=== PATIENT | female | born 1965 | race Caucasian/White ===

== ENCOUNTER 2017-03-17 12:38 | Emergency (ER) | payer OTHER ==
[~2017-03-17] VITALS: Ht 157.5 cm; Wt 87.0 kg
[~2017-03-17 12:38] MED LIST: FLEXERIL PO; LEVOTHYROXIN100 MCG PO; LISINOP/HCTZ1 TAB PO; NAPROSYN500 MG PO; NAPROXEN250 MG PO
[2017-03-17] MEDS ORDERED: PERCOCET 5/325M1 TAB PO (13:20)
[2017-03-17] MEDS ORDERED: EC-NAPROSYN500 MG PO (13:20)
[2017-03-17 14:00] VITALS: BP 148/75
== END 2017-03-17 14:00 | disposition home or self-care (01) | DRG 563 ==
LOC: ED 12:38
PROC: 2W3AX1Z Immobilization of Right Upper Arm using Splint (ICD-10-PCS; principal; 2017-03-17)
DX: S42.341A Displaced spiral fracture of shaft of humerus, right arm, initial encounter for closed fracture (principal); W01.190A Fall on same level from slipping, tripping and stumbling with subsequent striking against furniture, initial encounter; Y93.9 Activity, unspecified; Y92.003 Bedroom of unspecified non-institutional (private) residence as the place of occurrence of the external cause

== ENCOUNTER 2017-05-21 09:00 | Inpatient (IN) | payer OTHER ==
[2017-05-21] VITALS (7 sets, daily range): BP systolic 93–105; BP diastolic 39–55
[~2017-05-21] VITALS: Ht 157.5 cm; Wt 87.1 kg
[~2017-05-21 09:00] MED LIST changes: +ADULT ASPIRIN E81 MG PO; +EC-NAPROSYN500 MG PO; +PERCOCET 5/325M1 TAB PO
[2017-05-21 14:28] LABS: HEMATOCRIT 34.9 % (37.0-47.0); HEMOGLOBIN 11.7 g/dl (12.0-16.0); IMMATURE GRANULOCYTES 0.4 % (0.0-1.0); MEAN CELL VOLUME 87.9 fL CALC (80.0-100.0); MEAN CORPUSCULAR HGB 29.5 pG CALC (26.0-32.0); MEAN CORPUSCULAR HGB CONC 33.5 g/L CALC (32.0-36.0); NEUT# 7.29 thou/uL (2.00-7.15); RED BLOOD COUNT 3.97 mill/uL (4.20-5.60)
[2017-05-22 00:02] VITALS: BP 102/54
[2017-05-22 04:01] VITALS: BP 93/42
[2017-05-22 06:32] LABS: HEMATOCRIT 27.1 % (37.0-47.0); MEAN CELL VOLUME 89.7 fL CALC (80.0-100.0); MEAN CORPUSCULAR HGB 29.8 pG CALC (26.0-32.0); MEAN CORPUSCULAR HGB CONC 33.2 g/L CALC (32.0-36.0); RED BLOOD COUNT 3.02 mill/uL (4.20-5.60); RED CELL DISTRI WIDTH 14.4 % (11.5-15.5)
[2017-05-22 06:48] LABS: ANION GAP 12 (6-22 (CALC)); BUN 17 mg/dL (7-17); BUN/CREATININE RATIO 24 (12-20 (CALC)); CALCIUM 8.1 mg/dL (8.4-10.2); CARBON DIOXIDE 27 mmol/l (22-30); CHLORIDE 106 mmol/l (95-108); CREATININE 0.7 mg/dL (0.5-1.0); GFR > 60 ML/MIN (>=60 (CALC)); GFR FOR AFR.AMER. > 60 ML/MIN (>=60 (CALC)); GLUCOSE 95 mg/dL (65-105); POTASSIUM 4.1 mmol/l (3.5-5.1); SODIUM 140 mmol/l (137-146)
[2017-05-22 08:45] VITALS: BP 94/55
[2017-05-22] MEDS ORDERED: PERCOCET 10/31 COMBO PO (10:06)
== END 2017-05-22 14:25 | disposition home or self-care (01) | DRG 494 ==
LOC: ORM 09:00 → MS2 15:00
PROVIDERS: ADMIT Internal Medicine; ATTEND Orthopaedic Surgery
PROC: 0PSF04Z Reposition Right Humeral Shaft with Internal Fixation Device, Open Approach (ICD-10-PCS; principal; 2017-05-21)
DX: S42.351K Displaced comminuted fracture of shaft of humerus, right arm, subsequent encounter for fracture with nonunion (principal); E66.01 Morbid (severe) obesity due to excess calories; Z89.612 Acquired absence of left leg above knee; I10 Essential (primary) hypertension; E03.9 Hypothyroidism, unspecified; X58.XXXD Exposure to other specified factors, subsequent encounter; E78.5 Hyperlipidemia, unspecified; H93.19 Tinnitus, unspecified ear; Z68.33 Body mass index [BMI] 33.0-33.9, adult
CPT/HCPCS: J2710

== ENCOUNTER 2017-06-01 10:59 | Emergency (ER) | payer OTHER ==
[~2017-06-01] VITALS: Ht 157.5 cm; Wt 89.0 kg
[~2017-06-01 10:59] MED LIST changes: +PERCOCET 10/31 COMBO PO
[2017-06-01] MEDS ORDERED: LISINOPRIL/HYDR1 TA1 PO (11:29)
[2017-06-01] MEDS ORDERED: ZESTRIL10 MG PO (11:30)
[2017-06-01] MEDS ORDERED: HYDROCHLOROT25 MG PO (11:31)
[2017-06-01] MEDS ORDERED: FLONASE AL50 MCG/AC1 IN (11:32)
[2017-06-01 11:51] LABS: HEMATOCRIT 29.6 % (37.0-47.0); HEMOGLOBIN 9.4 g/dl (12.0-16.0); IMMATURE GRANULOCYTES 2.2 % (0.0-1.0); MEAN CELL VOLUME 91.4 fL CALC (80.0-100.0); MEAN CORPUSCULAR HGB CONC 31.8 g/L CALC (32.0-36.0); NEUT# 5.2 thou/uL (2.00-7.15); RED BLOOD COUNT 3.24 mill/uL (4.20-5.60); RED CELL DISTRI WIDTH 15.5 % (11.5-15.5)
[2017-06-01 12:02] LABS: ALBUMIN 4.2 g/dL (3.2-5.0); ALKALINE PHOSPHATASE 79 u/l (38-126); ANION GAP 15 (6-22 (CALC)); BILIRUBIN, TOTAL 0.7 mg/dL (0.0-1.4); BUN 13 mg/dL (7-17); BUN/CREATININE RATIO 18 (12-20 (CALC)); CALCIUM 9.3 mg/dL (8.4-10.2); CARBON DIOXIDE 24 mmol/l (22-30); CHLORIDE 109 mmol/l (95-108); CREATININE 0.7 mg/dL (0.5-1.0); GFR > 60 ML/MIN (>=60 (CALC)); GFR FOR AFR.AMER. > 60 ML/MIN (>=60 (CALC)); GLUCOSE 87 mg/dL (65-105); POTASSIUM 4.1 mmol/l (3.5-5.1); SGOT/AST 37 u/l (14-36); SGPT/ALT 34 u/l (9-52); SODIUM 143 mmol/l (137-146); TOTAL PROTEIN 7.7 g/dL (6.3-8.2)
[2017-06-01 12:15] LABS: MYOGLOBIN 34 ng/mL (0 - 62)
[2017-06-01 13:06] VITALS: BP 159/67
== END 2017-06-01 13:15 | disposition home or self-care (01) | DRG 204 ==
LOC: ED 10:59
PROVIDERS: Emergency Medicine
DX: R06.02 Shortness of breath (principal); Z89.612 Acquired absence of left leg above knee; I10 Essential (primary) hypertension; E05.90 Thyrotoxicosis, unspecified without thyrotoxic crisis or storm; Z85.830 Personal history of malignant neoplasm of bone; R05 Cough; Z98.890 Other specified postprocedural states; M79.601 Pain in right arm; M79.89 Other specified soft tissue disorders